=== PATIENT | female | born 2000 | race African-American/Black ===

== ENCOUNTER 2020-10-10 15:24 | Emergency (ER) | payer OTHER ==
[~2020-10-10] VITALS: Ht 162.6 cm; Wt 68.0 kg
[2020-10-10 15:32] VITALS: BP 129/70
== END 2020-10-10 15:51 | disposition home or self-care (01) ==
LOC: ER 15:24
DX: M25.512 Pain in left shoulder (principal); M54.2 Cervicalgia; R06.00 Dyspnea, unspecified; R13.10 Dysphagia, unspecified; J45.909 Unspecified asthma, uncomplicated; Y04.2XXA Assault by strike against or bumped into by another person, initial encounter; Y93.89 Activity, other specified; Y92.89 Other specified places as the place of occurrence of the external cause; Y99.8 Other external cause status